=== PATIENT | male | born 1940 | race Caucasian/White ===

== ENCOUNTER → 2018-11-22 | Emergency (ER) | payer MEDICARE ==
[~2018-11-22] VITALS: Ht 177.8 cm; Wt 88.2 kg
[2018-11-22 14:14] LABS: BE 1.1 mmol/L (-2 to +3); PCO2 29.6 mmHg (35.0-45.0); PO2 71.8 mmHg (75.0-100.0); pH 7.509 (7.340-7.450)
[2018-11-22 14:29] VITALS: BP 130/85
--- NOTE | 2018-11-22 16:46 | EKG ---
[place] [address] ELECTROCARDIOGRAM REPORT Name: SHASTA BUSTOS Room: [facility]#: [id number] Admission: 11/22/18 Attend Phys: Discharge: Date of : 44 Report #: [id number] THIS REPORT FOR: //name// [facility] ED Test Date: 2018-11-22 Test Time: 13:44:59 Pat Name: SHASTA BUSTOS Department: Room: Gender: [employer] Installer: SHON : 1940 Requested By: Bethany Torres Order Number: [id number] MD: Nicanor Perez Measurements Intervals [place]ina Rate: 91 P: 29 OR: 177 QRS: 39 QRSD: 99 T: 52 QT: 366 QTc: 451 Interpretive Statements Sinus rhythm Ventricular premature complex No previous ECG available for comparison Electronically Signed On 11-22-2018 16:46:01 CDT by Nicanor Perze [email or web address] <ELECTRONICALLY SIGNED> By: Nicanor Perez MD, [facility] 11/22/18 1646 [id number] Nicanor Perez MD, FACC /EPI
== END ==
LOC: M.ERS 13:41
PROVIDERS: Personal Emergency Response Attendant
DX: R53.1 Weakness (principal); R41.82 Altered mental status, unspecified